=== PATIENT | female | born 1995 | race Caucasian/White ===

== ENCOUNTER 2018-10-04 19:47 | Emergency (ER) | payer OTHER ==
[2018-10-04 20:30] VITALS: BP 148/79
[2018-10-04] MEDS ORDERED: PREDNISONE 20 MG TABLET PO ONE (22:38)
[2018-10-04] MEDS ORDERED: DIPHENHYDRAMINE HCL 25 MG CAPSULE PO ONE (22:38)
--- NOTE | 2018-10-04 22:40 | ER Document Report ---
ED General - General Chief Complaint: Allergic Reaction Stated Complaint: ALLERGIC REACTION Time Seen by Provider: 10/04/18 22:31 Notes: Patient is a pleasant 22-year-old female presents with complaint of a allergic reaction after taking allergy shots. She takes allergy shots at home. She said today she started a new vial. She had approximate 1-2 hours after taking shot her throat started to feel tight. She is at work. The tightness continued to increase and therefore she went to urgent care. Urgent care gave her 25 mg of Benadryl and sent her here. She says that her throat tightness is starting to improve however she is developed a hive-like reaction around the injection site over her right lower abdomen. She denies any other rashes. No other complaints at this time. She does not take any other medications. The only medication she is allergic to is penicillin. TRAVEL OUTSIDE OF THE [place] IN LAST 30 DAYS: No - Related Data Allergies/Adverse Reactions: Penicillins Allergy (Verified 10/04/18 22:50) Past Medical History - Social History Smoking Status: Never Smoker Frequency of alcohol use: None Drug Abuse: None Family History: Reviewed & Not Pertinent Review of Systems - Review of Systems Notes: My Normal Review Basic REVIEW OF SYSTEMS: CONSTITUTIONAL : Denies fever, chills, or sweats. Denies recent illness. EENT: Denies eye, ear, throat, or mouth pain or symptoms. Denies nasal or sinus congestion. RESPIRATORY: Some difficulty breathing earlier. GASTROINTESTINAL: Denies abdominal pain. Denies nausea, vomiting, or diarrhea. MUSCULOSKELETAL: Denies neck or back pain or joint pain or swelling. SKIN: Hives-like reaction around the injection site. NEUROLOGICAL: Denies altered mental status or loss of consciousness. Denies headache. Denies weakness or paralysis or loss of use of either side. Denies problems with gait or speech. Denies sensory or motor loss. ALL OTHER SYSTEMS REVIEWED AND NEGATIVE. Physical Exam - Vital signs Vitals: Temp Pulse Resp BP Pulse Ox 99.5 F 75 16 148/79 H 99 10/04/18 20:29 10/04/18 20:29 10/04/18 20:29 10/04/18 20:29 10/04/18 20:29 - Notes Notes: General Appearance: Well nourished, alert, cooperative, no acute distress, no obvious discomfort. Vitals: reviewed, See vital signs table. Head: no swelling or tenderness to the head Eyes: PERRL, EOMI, Conjuctiva clear Mouth: No decreasd moisture Throat: Normal-appearing posterior pharynx. No swelling. No edema. No stridor. Normal sounding voice. Lungs: No wheezing, No rales, No rhonci, No accessory muscle use, good air exchange bilaterally. Heart: Normal rate, Regular rythm, No murmur, no rub Abdomen: Normal BS, soft, No rigidity, No abdominal tenderness, No guarding, no rebound Extremities: strength 5/5 in all extremities, good pulses in all extremities, no swelling or tenderness in the extremities, no edema. Skin: Localized hive-like reaction at injection site in the right lower abdomen. Neuro: speech clear, oriented x 3, normal affect, responds appropriately to questions. Course - Re-evaluation Re-evalutation: 10/05/18 00:18 On reevaluation patient looks well. I feel she safe to be discharged home. Says her throat feels back to normal. The area of hives on her abdomen is almost completely resolved. Will place her on prednisone for the next few days. I encouraged her follow-up closely with an woodwork salvage inspector. I told her not to use the vial or injection again until cleared by her woodwork salvage inspector. She is to return to the ER if she has difficulty breathing, difficulty swallowing, or she feels unwell. Dictation of this chart was performed using voice recognition software; therefore, there may be some unintended grammatical errors. 10/05/18 00:19 10/05/18 05:43 - Vital Signs Vital signs: Temp Pulse Resp BP Pulse Ox 99.5 F 75 16 148/79 H 99 10/04/18 20:29 10/04/18 20:29 10/04/18 20:29 10/04/18 20:29 10/04/18 20:29 Discharge - Discharge Clinical Impression: Allergic reaction Condition: Good Disposition: HOME, SELF-CARE Additional Instructions: Please return to the ER immediately if you have to use theEpi pen, have facial swelling, tongue swelling, throat swelling, difficulty breathing, or feel that your reaction is becoming severe. Please use the Epi pen if you have any facial swelling, tongue swelling, or difficulty breathing. Please take Benadryl for any itching. Please do not take any further allergy shots until reevaluated and cleared by your woodwork salvage inspector. Prescriptions: RX: Prednisone [Deltasone 20 mg Tablet] 3 tab PO DAILY 3 Days tablet Forms: Return to Work
== END 2018-10-05 00:28 | disposition home or self-care (01) ==
LOC: ER 19:47
DX: T78.40XA Allergy, unspecified, initial encounter (principal); Z88.0 Allergy status to penicillin; X58.XXXA Exposure to other specified factors, initial encounter
CPT/HCPCS: 99283; J7512

== ENCOUNTER → 2019-03-23 | Outpatient (CLI) | payer OTHER ==
[2019-03-25 08:06] LABS: THYROID PEROXIDASE (TPO) AB 263 IU/mL (0-34)
[2019-03-25 16:47] LABS: THYROGLOBULIN AB 2.4 IU/mL (0.0-0.9)
== END ==
LOC: OD 09:09
PROVIDERS: ATTEND Otolaryngology
DX: J30.9 Allergic rhinitis, unspecified (principal); E06.3 Autoimmune thyroiditis
CPT/HCPCS: 36415; 82785; 84443; 86003; 86376; 86800

== ENCOUNTER → 2019-04-20 | Outpatient (CLI) | payer OTHER | LOC: OD 10:50 | PROVIDERS: ATTEND Otolaryngology | DX: J30.9 Allergic rhinitis, unspecified (principal); E06.3 Autoimmune thyroiditis | CPT/HCPCS: 36415; 82785; 86003 ==

== ENCOUNTER → 2019-08-05 | Outpatient (CLI) | payer OTHER ==
[2019-08-05 15:03] LABS: ABSOLUTE EOSINOPHILS # (AUTO) 0.2 10^3/uL (0.0-0.6); ABSOLUTE LYMPHOCYTES (AUTO) 4.3 10^3/uL (0.5-4.7); ABSOLUTE MONOCYTES (AUTO) 0.6 10^3/uL (0.1-1.4); ABSOLUTE NEUT (AUTO) 5.8 10^3/uL (1.7-8.2); BASOPHILS % (AUTO) 0.4 % (0-2); EOSINOPHILS % (AUTO) 2.2 % (0-6); HEMATOCRIT 44.6 % (36.0-47.0); HEMOGLOBIN 15.3 g/dL (12.0-15.5); LYMPHOCYTES % (AUTO) 39.2 % (13-45); MEAN CORPUSCULAR HEMOGLOBIN 29.3 pg (27.0-33.4); MEAN CORPUSCULAR HGB CONC 34.2 g/dL (32.0-36.0); MEAN CORPUSCULAR VOLUME 86 fl (80-97); MONOCYTES % (AUTO) 5.7 % (3-13); PLATELET COUNT 318 10^3/uL (150-450); RED BLOOD COUNT 5.22 10^6/uL (3.72-5.28); RED CELL DISTRIBUTION WIDTH 14.5 % (11.5-14.0); SEGMENTED NEUTROPHILS % (AUTO) 52.5 % (42-78); TOTAL CELLS COUNTED % (AUTO) 100 %
== END ==
LOC: OD 14:23
PROVIDERS: ATTEND Internal Medicine Endocrinology, Diabetes & Metabolism
DX: E06.3 Autoimmune thyroiditis (principal); R59.0 Localized enlarged lymph nodes
CPT/HCPCS: 36415; 85025

== ENCOUNTER → 2019-12-05 | Outpatient (CLI) | payer OTHER ==
[2019-12-05 16:50] LABS: FREE T3 3.91 pg/mL (2.77-5.27); FREE T4 (FREE THYROXINE) 1.17 ng/dL (0.78-2.19)
[2019-12-05 17:04] LABS: THYROID STIMULATING HORMONE 2.79 uIU/mL (0.47-4.68)
== END ==
LOC: OD 14:42
PROVIDERS: ATTEND Internal Medicine Endocrinology, Diabetes & Metabolism
DX: E06.3 Autoimmune thyroiditis (principal); E04.1 Nontoxic single thyroid nodule
CPT/HCPCS: 36415; 84439; 84443; 84481